=== PATIENT | female | born 1960 | race Caucasian/White ===

== ENCOUNTER 2018-12-08 13:05 | Emergency (ER) | payer OTHER ==
[2018-12-08 13:52] VITALS: BP 133/104
--- NOTE | 2018-12-08 14:09 | UC ---
Skin Complaint HPI - HPI Summary HPI Summary: Last night had insect sting/bite on right ankle 12/06/18 while dining out. Pain and swelling worsening. No difficulty breathing or swallowing. Feels itchy sometimes but more painful than normal. - History of Current Complaint Chief Complaint: [facility] Time Seen by Provider: 12/08/18 13:59 Stated Complaint: INSECT STING Hx Obtained From: Patient Hx Last Menstrual Period: 09/22/13 Pain Intensity: 6 Pain Scale Used: 0-10 Numeric Aggravating Factor(s): Touch - Allergy/Home Medications Allergies/Adverse Reactions: Allergies Allergy/AdvReac Type Severity Reaction Status Date / Time No Known Allergies Allergy Verified 12/08/18 13:53 PMH/Surg Hx/FS Hx/Imm Hx Previously Healthy: Yes - Surgical History Surgical History: Yes Surgery Procedure, Year, and Place: WISDOM TEETH-1982. RHINOPLASTY-2007. BREAST AUGMENTATION-2008. bunion surgery left foot - 2012 - Family History Known Family History: Positive: Non-Contributory - Social History Alcohol Use: Occasionally Substance Use Type: None Smoking Status (MU): Never Smoked Tobacco Review of Systems All Other Systems Reviewed And Are Negative: Yes Constitutional: Negative: Fever Skin: Positive: Other - redness at R ankle. Negative: Rash Respiratory: Positive: Negative Cardiovascular: Positive: Negative Musculoskeletal: Positive: Arthralgia, Edema Physical Exam Triage Information Reviewed: Yes Appearance: Well-Appearing Vital Signs: Initial Vital Signs Temp 98.9 F 12/08/18 13:46 Pulse 80 12/08/18 13:46 Resp 12 12/08/18 13:46 BP 133/104 12/08/18 13:46 Pulse Ox 99 12/08/18 13:46 Vital Signs Reviewed: Yes Respiratory Exam: Normal Cardiovascular Exam: Normal Musculoskeletal: Positive: Other: - R ankle swollen to mid foot, erythematous, and mildly tender. Neurological: Positive: Alert Course/Dx - Course Course Of Treatment: Unclear etiology of insect bite but has now become cellulitic. Will tx w/ antibx and also advised benadryl and ranitidine to help w/ histamine rxn. Afebrile. Bp discussed w/ pt and they will review w/ pcp. Repeat BP 149/98 - Differential Diagnoses - Skin Complaint Differential Diagnoses: Local Allergic Reaction, Other - Diagnoses Provider Diagnosis: Cellulitis Discharge ED - Sign-Out/Discharge Documenting (check all that apply): Patient Departure All imaging exams completed and their final reports reviewed: No Studies - Discharge Plan Condition: Good Disposition: HOME Prescriptions: Cephalexin CAP* [Keflex CAP*] 500 mg PO QID 7 Days #28 cap raNITIdine HCl [Ranitidine HCl] 150 mg PO DAILY 5 Days #5 capsule Patient Education Materials: Insect Bite or Sting (ED) Referrals: Maggie Sorto MD [Primary Care Provider] - Additional Instructions: Please discuss high blood pressure with your pcp - Billing Disposition and Condition Condition: GOOD Disposition: Home
== END 2018-12-08 14:28 | disposition home or self-care (01) ==
LOC: UCEAST 13:05
DX: S90.561A Insect bite (nonvenomous), right ankle, initial encounter (principal); L03.115 Cellulitis of right lower limb; W57.XXXA Bitten or stung by nonvenomous insect and other nonvenomous arthropods, initial encounter; Y92.9 Unspecified place or not applicable
CPT/HCPCS: 99212; G0463